=== PATIENT | male | born 1940 | race Two or more races ===

== ENCOUNTER 2016-12-14 09:20 | Outpatient (CLI) | payer MEDICARE, BC | END 2016-12-14 23:59 | disposition home health service (06) | LOC: WOU 09:20 | PROVIDERS: ATTEND Podiatrist Foot & Ankle Surgery | DX: E11.621 Type 2 diabetes mellitus with foot ulcer (principal); L97.413 Non-pressure chronic ulcer of right heel and midfoot with necrosis of muscle; Z79.4 Long term (current) use of insulin; E11.22 Type 2 diabetes mellitus with diabetic chronic kidney disease; I13.2 Hypertensive heart and chronic kidney disease with heart failure and with stage 5 chronic kidney disease, or end stage renal disease; I50.42 Chronic combined systolic (congestive) and diastolic (congestive) heart failure; N18.6 End stage renal disease; Z99.2 Dependence on renal dialysis; E78.5 Hyperlipidemia, unspecified; Z79.899 Other long term (current) drug therapy; I25.10 Atherosclerotic heart disease of native coronary artery without angina pectoris; Z95.1 Presence of aortocoronary bypass graft; E11.610 Type 2 diabetes mellitus with diabetic neuropathic arthropathy; E11.41 Type 2 diabetes mellitus with diabetic mononeuropathy | CPT/HCPCS: 11043; A6402; A6407 ==

== ENCOUNTER 2016-12-21 10:29 | Outpatient (CLI) | payer MEDICARE, BC | END 2016-12-21 23:59 | disposition home health service (06) | LOC: WOU 10:29 | PROVIDERS: ATTEND Podiatrist Foot & Ankle Surgery | DX: E11.621 Type 2 diabetes mellitus with foot ulcer (principal); L97.413 Non-pressure chronic ulcer of right heel and midfoot with necrosis of muscle; E11.41 Type 2 diabetes mellitus with diabetic mononeuropathy; E11.610 Type 2 diabetes mellitus with diabetic neuropathic arthropathy; E11.59 Type 2 diabetes mellitus with other circulatory complications; E11.22 Type 2 diabetes mellitus with diabetic chronic kidney disease; I13.2 Hypertensive heart and chronic kidney disease with heart failure and with stage 5 chronic kidney disease, or end stage renal disease; I50.42 Chronic combined systolic (congestive) and diastolic (congestive) heart failure; N18.6 End stage renal disease; Z99.2 Dependence on renal dialysis | CPT/HCPCS: 11043; A6402; A6407 ==

== ENCOUNTER 2016-12-28 09:40 | Outpatient (CLI) | payer MEDICARE, BC | END 2016-12-28 23:59 | disposition home health service (06) | LOC: WOU 09:40 | PROVIDERS: ATTEND Podiatrist Foot & Ankle Surgery | DX: E11.621 Type 2 diabetes mellitus with foot ulcer (principal); L97.413 Non-pressure chronic ulcer of right heel and midfoot with necrosis of muscle; E11.41 Type 2 diabetes mellitus with diabetic mononeuropathy; E11.610 Type 2 diabetes mellitus with diabetic neuropathic arthropathy; E11.59 Type 2 diabetes mellitus with other circulatory complications; E11.22 Type 2 diabetes mellitus with diabetic chronic kidney disease; N18.6 End stage renal disease; Z99.2 Dependence on renal dialysis; Z79.4 Long term (current) use of insulin; I13.2 Hypertensive heart and chronic kidney disease with heart failure and with stage 5 chronic kidney disease, or end stage renal disease; I50.32 Chronic diastolic (congestive) heart failure; I25.10 Atherosclerotic heart disease of native coronary artery without angina pectoris; Z95.1 Presence of aortocoronary bypass graft | CPT/HCPCS: 11043; A6402; A6407 ==

== ENCOUNTER 2016-12-31 08:08 | Day surgery (SDC) | payer MEDICARE, OTHER ==
[~2016-12-31] VITALS: Ht 175.3 cm; Wt 77.6 kg
[2016-12-31] MEDS ORDERED: CEFAZOLIN SODIUM/DEXTROSE,ISO 50 ML IV ONE (10:48)
[2016-12-31] MEDS ORDERED: MIDAZOLAM HCL 2 MG/2ML VIAL ONE (11:10)
[2016-12-31] MEDS ORDERED: FENTANYL PF 100MCG/2ML AMPUL ONE (11:11)
[2016-12-31] MEDS ORDERED: BUPIVACAINE 0.5 % PF 150 MG/30 ML VIAL ONE (11:34)
[2016-12-31] MEDS ORDERED: oxyCODONE/APAP (5/325 MG) 1 UDTAB TABLET PO PRN (12:30)
== END 2016-12-31 13:30 | disposition home or self-care (01) ==
LOC: DS 08:08
PROVIDERS: ATTEND Podiatrist Foot & Ankle Surgery
DX: E11.621 Type 2 diabetes mellitus with foot ulcer (principal); L97.513 Non-pressure chronic ulcer of other part of right foot with necrosis of muscle; E11.21 Type 2 diabetes mellitus with diabetic nephropathy; T81.32XA Disruption of internal operation (surgical) wound, not elsewhere classified, initial encounter
CPT/HCPCS: 87070-TC; A6209; A6402; J0690; J2250; J2704; J3010; J3490; Z7610

== ENCOUNTER 2017-01-07 09:25 | Outpatient (CLI) | payer MEDICARE, OTHER | END 2017-01-07 23:59 | disposition home health service (06) | LOC: WOU 09:25 | PROVIDERS: ATTEND Podiatrist Foot & Ankle Surgery | DX: Z48.817 Encounter for surgical aftercare following surgery on the skin and subcutaneous tissue (principal); E11.621 Type 2 diabetes mellitus with foot ulcer; L97.519 Non-pressure chronic ulcer of other part of right foot with unspecified severity; S81.801A Unspecified open wound, right lower leg, initial encounter; X58.XXXA Exposure to other specified factors, initial encounter; Y92.89 Other specified places as the place of occurrence of the external cause; E11.22 Type 2 diabetes mellitus with diabetic chronic kidney disease; I13.2 Hypertensive heart and chronic kidney disease with heart failure and with stage 5 chronic kidney disease, or end stage renal disease; I50.42 Chronic combined systolic (congestive) and diastolic (congestive) heart failure; N18.6 End stage renal disease; Z99.2 Dependence on renal dialysis; E78.5 Hyperlipidemia, unspecified; F41.8 Other specified anxiety disorders; I25.10 Atherosclerotic heart disease of native coronary artery without angina pectoris; Z95.1 Presence of aortocoronary bypass graft; Z79.82 Long term (current) use of aspirin; Z79.899 Other long term (current) drug therapy; Z79.4 Long term (current) use of insulin; E11.610 Type 2 diabetes mellitus with diabetic neuropathic arthropathy | CPT/HCPCS: A6253; A6402; G0463 ==

== ENCOUNTER 2017-01-14 09:26 | Outpatient (CLI) | payer MEDICARE, OTHER | END 2017-01-14 23:59 | disposition home or self-care (01) | LOC: WOU 09:26 | PROVIDERS: ATTEND Podiatrist Foot & Ankle Surgery | DX: T81.31XA Disruption of external operation (surgical) wound, not elsewhere classified, initial encounter (principal); S81.801D Unspecified open wound, right lower leg, subsequent encounter; X58.XXXD Exposure to other specified factors, subsequent encounter; E11.22 Type 2 diabetes mellitus with diabetic chronic kidney disease; I13.2 Hypertensive heart and chronic kidney disease with heart failure and with stage 5 chronic kidney disease, or end stage renal disease; I50.42 Chronic combined systolic (congestive) and diastolic (congestive) heart failure; N18.6 End stage renal disease; Z99.2 Dependence on renal dialysis; E78.5 Hyperlipidemia, unspecified; I25.10 Atherosclerotic heart disease of native coronary artery without angina pectoris; Z95.1 Presence of aortocoronary bypass graft; Z79.4 Long term (current) use of insulin; Z79.82 Long term (current) use of aspirin; Z79.899 Other long term (current) drug therapy; E11.610 Type 2 diabetes mellitus with diabetic neuropathic arthropathy; E11.41 Type 2 diabetes mellitus with diabetic mononeuropathy; E11.59 Type 2 diabetes mellitus with other circulatory complications | CPT/HCPCS: 12020; A6253; A6402 ==

== ENCOUNTER 2017-01-21 09:57 | Outpatient (CLI) | payer MEDICARE, OTHER | END 2017-01-21 23:59 | disposition home health service (06) | LOC: WOU 09:57 | PROVIDERS: ATTEND Podiatrist Foot & Ankle Surgery | DX: T81.31XD Disruption of external operation (surgical) wound, not elsewhere classified, subsequent encounter (principal); S81.801D Unspecified open wound, right lower leg, subsequent encounter; X58.XXXD Exposure to other specified factors, subsequent encounter; E11.22 Type 2 diabetes mellitus with diabetic chronic kidney disease; I13.2 Hypertensive heart and chronic kidney disease with heart failure and with stage 5 chronic kidney disease, or end stage renal disease; I50.42 Chronic combined systolic (congestive) and diastolic (congestive) heart failure; N18.6 End stage renal disease; Z99.2 Dependence on renal dialysis; I25.10 Atherosclerotic heart disease of native coronary artery without angina pectoris; Z95.1 Presence of aortocoronary bypass graft; Z79.4 Long term (current) use of insulin; Z79.82 Long term (current) use of aspirin; E11.610 Type 2 diabetes mellitus with diabetic neuropathic arthropathy; E11.41 Type 2 diabetes mellitus with diabetic mononeuropathy; E11.59 Type 2 diabetes mellitus with other circulatory complications | CPT/HCPCS: A6253; A6402; G0463 ==

== ENCOUNTER 2017-01-28 09:20 | Outpatient (CLI) | payer MEDICARE, OTHER | END 2017-01-28 23:59 | disposition home health service (06) | LOC: WOU 09:20 | PROVIDERS: ATTEND Podiatrist Foot & Ankle Surgery | DX: T81.31XD Disruption of external operation (surgical) wound, not elsewhere classified, subsequent encounter (principal); E11.59 Type 2 diabetes mellitus with other circulatory complications; E11.22 Type 2 diabetes mellitus with diabetic chronic kidney disease; I13.2 Hypertensive heart and chronic kidney disease with heart failure and with stage 5 chronic kidney disease, or end stage renal disease; I50.9 Heart failure, unspecified; N18.6 End stage renal disease; Z99.2 Dependence on renal dialysis; E78.5 Hyperlipidemia, unspecified; Z79.899 Other long term (current) drug therapy; E11.610 Type 2 diabetes mellitus with diabetic neuropathic arthropathy; E11.41 Type 2 diabetes mellitus with diabetic mononeuropathy | CPT/HCPCS: A6402; G0463 ==

== ENCOUNTER 2017-02-18 13:30 | Outpatient (CLI) | payer MEDICARE, OTHER | END 2017-02-18 23:59 | disposition home health service (06) | LOC: WOU 13:30 | PROVIDERS: ATTEND Podiatrist Foot & Ankle Surgery | DX: T81.31XA Disruption of external operation (surgical) wound, not elsewhere classified, initial encounter (principal); E11.621 Type 2 diabetes mellitus with foot ulcer; L97.413 Non-pressure chronic ulcer of right heel and midfoot with necrosis of muscle; E11.610 Type 2 diabetes mellitus with diabetic neuropathic arthropathy; E11.41 Type 2 diabetes mellitus with diabetic mononeuropathy; E11.22 Type 2 diabetes mellitus with diabetic chronic kidney disease; I13.2 Hypertensive heart and chronic kidney disease with heart failure and with stage 5 chronic kidney disease, or end stage renal disease; I50.30 Unspecified diastolic (congestive) heart failure; N18.6 End stage renal disease; Z99.2 Dependence on renal dialysis; Z79.4 Long term (current) use of insulin; Z79.82 Long term (current) use of aspirin; I25.10 Atherosclerotic heart disease of native coronary artery without angina pectoris; Z95.1 Presence of aortocoronary bypass graft | CPT/HCPCS: 11042; A6209; A6402 ==

== ENCOUNTER 2017-02-22 09:00 | Outpatient (CLI) | payer MEDICARE, OTHER | END 2017-02-22 23:58 | disposition home health service (06) | LOC: WOU 09:00 | PROVIDERS: ATTEND Podiatrist Foot & Ankle Surgery | DX: E11.621 Type 2 diabetes mellitus with foot ulcer (principal); L97.413 Non-pressure chronic ulcer of right heel and midfoot with necrosis of muscle; T81.31XA Disruption of external operation (surgical) wound, not elsewhere classified, initial encounter; E11.610 Type 2 diabetes mellitus with diabetic neuropathic arthropathy; E11.41 Type 2 diabetes mellitus with diabetic mononeuropathy; E11.22 Type 2 diabetes mellitus with diabetic chronic kidney disease; I13.2 Hypertensive heart and chronic kidney disease with heart failure and with stage 5 chronic kidney disease, or end stage renal disease; I50.30 Unspecified diastolic (congestive) heart failure; N18.6 End stage renal disease; Z99.2 Dependence on renal dialysis; Z79.4 Long term (current) use of insulin; Z79.82 Long term (current) use of aspirin; I25.10 Atherosclerotic heart disease of native coronary artery without angina pectoris; Z95.1 Presence of aortocoronary bypass graft | CPT/HCPCS: 11042; A6209; A6402 ==